=== PATIENT | male | born 1960 | race Caucasian/White ===

== ENCOUNTER 2021-01-18 15:21 | Emergency (ER) | payer OTHER ==
[2021-01-18 15:40] VITALS: BMI 34.4
[2021-01-18] MEDS ORDERED: KETOROLAC TROMETHAMINE 30 MG/1 ML VIAL IVPUSH ONE (16:19)
[2021-01-18] MEDS ORDERED: CLINDAMYCIN 600MG PREMIX IVPB 600 MG/50 ML BAG IVPB ONE ×2 (16:19→17:32)
[2021-01-18] MEDS ORDERED: KETOROLAC TROMETHAMINE 30 MG/1 ML VIAL ONE (17:29)
[2021-01-18 17:43] LABS: BASO % 0.5 % (0-2.0); HEMATOCRIT 37.7 % (35.4-49); LYMPH % 14.1 % (8-40); MCHC 34.6 g/dl (32.0-35.9); MEAN CELL VOLUME 92.5 fl (80-96); MEAN PLT VOLUME 8.5 fl (7.5-11.1); MONO % 7.2 % (3.8-10.2); NEUT % 77.2 % (42.8-82.8); RBC 4.07 M/mm3 (4.00-5.60); RDW 13.3 % (11.9-15.9); WHITE BLOOD COUNT 9.4 K/mm3 (4.0-10.0)
[2021-01-18 18:03] LABS: ALBUMIN 3.5 g/dl (3.4-5.0); CALCIUM 9.2 mg/dL (8.5-10.1)
[2021-01-18 18:04] LABS: BLOOD UREA NITROGEN 41.1 mg/dL (7-18)
[2021-01-18 18:06] LABS: URIC ACID 5.6 mg/dL (2.6-7.2)
[2021-01-18 18:07] LABS: CREATININE 1.6 mg/dL (0.55-1.3)
[2021-01-18 18:08] LABS: BILIRUBIN,TOTAL 0.6 mg/dL (0.2-1); TOT PROT 7.6 g/dl (6.4-8.2)
[2021-01-18] MEDS ORDERED: SODIUM CHLORIDE 1,000 ML IV STA (18:31)
[2021-01-18 18:38] LABS: ERYTHROCYTE SEDIMENTATION RATE 21 mm/hr (0-20)
[2021-01-18 18:39] LABS: PLATELET COUNT 168 10^3/uL (134-434); PLATELET ESTIMATE ADEQUATE
[2021-01-18 19:08] VITALS: BP 146/80; PULSE 71; TEMP 97.9
== END 2021-01-18 19:21 | disposition home or self-care (01) ==
LOC: JERFT 15:21
PROC: 3E033NZ Introduction of Analgesics, Hypnotics, Sedatives into Peripheral Vein, Percutaneous Approach (ICD-10-PCS; principal; 2021-01-18)
PROC: 3E0333Z Introduction of Anti-inflammatory into Peripheral Vein, Percutaneous Approach (ICD-10-PCS; 2021-01-18)
PROC: 3E0337Z Introduction of Electrolytic and Water Balance Substance into Peripheral Vein, Percutaneous Approach (ICD-10-PCS; 2021-01-18)
DX: L03.116 Cellulitis of left lower limb (principal)
CPT/HCPCS: 36415; 73560-TC-LT-FY; 80053; 84550; 85025; 85651; 86140; 99285-25